=== PATIENT | female | born 1945 | race Caucasian/White ===

== ENCOUNTER 2020-07-30 12:19 | Day surgery (SDC) | payer MEDICARE ==
[~2020-07-30 12:19] MED LIST: Bupivacaine PF 0.75% SDV 10 ML ONE; Enoxaparin Sodium 30 MG/0.3 ML SYRINGE ONE; Fluorouracil 100 MG, Enoxaparin Sodium 25 MG, EPINEPHrine 0.3 MG in Ophthalmic Irrigati... IRR SCH; Lidocaine 4% PF 5 ML AMP ONE; Maxitrol 0.1% Opth Oint 3.5 GM TUBE ONE; Ondansetron PF 4 MG/2 ML Vial ONE; PROPOFOL 200 MG/20 ML VIAL ONE; Triamcinolone 40 MG/ML VIAL ONE
[2020-07-30] MEDS ORDERED: Phenylephrine 2.5% Ophth Soln 5 ML BOT ONE (13:13)
[2020-07-30] MEDS ORDERED: Cyclopentolate 1% Opth Drop 2 ML BOT ONE (13:13)
[2020-07-30] MEDS ORDERED: Dextrose 50% Abboject 50 ML SYRINGE ONE (14:14)
[2020-07-30] MEDS ORDERED: Fentanyl 100 MCG/2 ML VIAL ONE (15:00)
[2020-07-30] MEDS ORDERED: Midazolam HCl 2 mg/2 ml Vial ONE (15:00)
--- NOTE | 2020-07-31 12:42 | OP ---
DATE OF PROCEDURE: 07/30/2020 PREOPERATIVE DIAGNOSIS: Rhegmatogenous retinal detachment, left eye. POSTOPERATIVE DIAGNOSIS: Rhegmatogenous retinal detachment, left eye. PROCEDURES PERFORMED: Pars plana vitrectomy and retinal detachment repair, left eye. ANESTHESIA: Local with monitored anesthesia care. DESCRIPTION OF PROCEDURE: The patient was identified in the preoperative holding area. Appropriate informed consent for the planned surgical procedure on the left eye had been obtained. The patient was transported to the operative suite. Appropriate cardiopulmonary monitoring was established. Local anesthesia was obtained using retrobulbar modified Van Lint lid block using 50:50 mixture of 4% lidocaine and 0.75% bupivacaine. The patient was prepped and draped in usual sterile manner for ophthalmic surgery on the left eye. Lid speculum was placed in the left eye. A 27-gauge trocar was placed in the conjunctiva and sclera supratemporally, inferotemporally, and supranasally. Infusion line was placed inferotemporally. Light pipe and vitreous cutter inserted to the eye. Core vitrectomy was performed. At this point, I was noted that there was only isolated areas of elevation of the posterior hyaloid face. The hyaloid face was generally attached 360 degrees. Vigorous attempts to peel this posterior hyaloid face were unsuccessful. A tear was noted at the 12 o'clock, in addition tear was noted at the 4 o'clock position. Posterior drained retinotomy was created inferotemporally after the vitreous was trimmed back 360 degrees. Complete air-fluid exchange was performed with 10 minutes being left for fluid to drain. Posteriorly 360 laser was placed using Endolaser delivery device. Silicone oil was placed into the eye and the sclerotomy was suture closed with 7-0 Vicryl suture. Retrobulbar Kenalog and subconjunctival Ancef was placed. Antibiotic ointment was placed. Eye was patched and shielded. The patient was taken to postop recovery unit in good condition having suffered no immediate perioperative complications. The patient instructed to keep patch shield on position in the right side down. Followup appointment with Dr. Dwyer. Job ID: [id number]
== END 2020-07-30 17:23 | disposition home or self-care (01) ==
LOC: SDC 12:19
PROVIDERS: ATTEND Ophthalmology Retina Specialist
PROC: 08T53ZZ Resection of Left Vitreous, Percutaneous Approach (ICD-10-PCS; principal; 2020-07-30)
DX: H33.022 Retinal detachment with multiple breaks, left eye (principal); I10 Essential (primary) hypertension; E11.9 Type 2 diabetes mellitus without complications; E66.9 Obesity, unspecified; Z79.4 Long term (current) use of insulin; Z79.52 Long term (current) use of systemic steroids; Z79.82 Long term (current) use of aspirin; Z79.899 Other long term (current) drug therapy; Z88.0 Allergy status to penicillin; Z88.8 Allergy status to other drugs, medicaments and biological substances; Z94.0 Kidney transplant status
CPT/HCPCS: 67108; 82962; C1814; 36416; J0171; J1650; J2001; J2250; J2405; J2704; J3010; J3301; J3490; J9190

== ENCOUNTER 2020-11-16 13:59 | Outpatient (CLI) | payer MEDICARE ==
[2020-11-17 04:20] LABS: SARS-CoV-2 PCR by NAA Not Detected (NotDetected)
== END 2020-11-16 14:00 | disposition home or self-care (01) ==
LOC: LABBT 13:59
PROVIDERS: ATTEND Ophthalmology Retina Specialist
DX: Z01.812 Encounter for preprocedural laboratory examination (principal); H43.392 Other vitreous opacities, left eye; Z20.822 Contact with and (suspected) exposure to COVID-19
CPT/HCPCS: U0003; U0005; 87635

== ENCOUNTER 2020-11-19 06:31 | Day surgery (SDC) | payer MEDICARE ==
[2020-11-18 09:56] VITALS: BMI 33.5
[~2020-11-19 06:31] MED LIST changes: -Bupivacaine PF 0.75% SDV 10 ML ONE; +EPINEPHrine 0.3 MG in Ophthalmic Irrigation Solution 500 ML IRR SCH; -Enoxaparin Sodium 30 MG/0.3 ML SYRINGE ONE; -Fluorouracil 100 MG, Enoxaparin Sodium 25 MG, EPINEPHrine 0.3 MG in Ophthalmic Irrigati... IRR SCH; -Lidocaine 4% PF 5 ML AMP ONE; -Maxitrol 0.1% Opth Oint 3.5 GM TUBE ONE; -Ondansetron PF 4 MG/2 ML Vial ONE; -PROPOFOL 200 MG/20 ML VIAL ONE; -Triamcinolone 40 MG/ML VIAL ONE
[2020-11-19] MEDS ORDERED: Fentanyl 100 MCG/2 ML VIAL ONE (06:33)
[2020-11-19] MEDS ORDERED: Midazolam HCl 2 mg/2 ml Vial ONE (06:33)
[2020-11-19] MEDS ORDERED: Cyclopentolate 1% Opth Drop 2 ML BOT ONE (07:09)
[2020-11-19] MEDS ORDERED: Phenylephrine 2.5% Ophth Soln 5 ML BOT ONE (07:10)
[2020-11-19] MEDS ORDERED: Triamcinolone 40 MG/ML VIAL ONE (08:05)
[2020-11-19] MEDS ORDERED: Bupivacaine PF 0.75% SDV 10 ML ONE (08:05)
[2020-11-19] MEDS ORDERED: Lidocaine 4% PF 5 ML AMP ONE (08:05)
[2020-11-19] MEDS ORDERED: PROPOFOL 200 MG/20 ML VIAL ONE (08:05)
[2020-11-19] MEDS ORDERED: PHENYLEPHRINE-NS 100 MCG/ML 10 ML SYRINGE ONE (08:05)
[2020-11-19] MEDS ORDERED: Maxitrol 0.1% Opth Oint 3.5 GM TUBE ONE (08:05)
== END 2020-11-19 10:23 | disposition home or self-care (01) ==
LOC: SDC 06:31
PROVIDERS: ATTEND Ophthalmology Retina Specialist
PROC: 08T53ZZ Resection of Left Vitreous, Percutaneous Approach (ICD-10-PCS; principal; 2020-11-19)
PROC: 08NF3ZZ Release Left Retina, Percutaneous Approach (ICD-10-PCS; 2020-11-19)
DX: H43.392 Other vitreous opacities, left eye (principal); Z79.4 Long term (current) use of insulin; Z79.82 Long term (current) use of aspirin; Z79.899 Other long term (current) drug therapy; Z88.0 Allergy status to penicillin; Z88.8 Allergy status to other drugs, medicaments and biological substances
CPT/HCPCS: J0171; J2250; J2704; J3010; J3301; J3490

== ENCOUNTER 2020-12-29 10:28 | Outpatient (CLI) | payer MEDICARE ==
[2020-12-29 21:48] LABS: SARS-CoV-2 PCR by NAA Not Detected (NotDetected)
== END 2020-12-29 10:29 | disposition home or self-care (01) ==
LOC: LABBT 10:28
PROVIDERS: ATTEND Ophthalmology Retina Specialist
DX: Z01.812 Encounter for preprocedural laboratory examination (principal); H33.22 Serous retinal detachment, left eye; Z20.822 Contact with and (suspected) exposure to COVID-19
CPT/HCPCS: U0003; U0005; 87635

== ENCOUNTER 2020-12-31 06:23 | Day surgery (SDC) | payer MEDICARE ==
[~2020-12-31 06:23] MED LIST changes: -EPINEPHrine 0.3 MG in Ophthalmic Irrigation Solution 500 ML IRR SCH; +Fluorouracil 100 MG, Enoxaparin Sodium 25 MG, EPINEPHrine 0.3 MG in Ophthalmic Irrigati... IRR SCH
[2020-12-31] MEDS ORDERED: Fentanyl 100 MCG/2 ML VIAL ONE (06:28)
[2020-12-31] MEDS ORDERED: Midazolam HCl 2 mg/2 ml Vial ONE (06:28)
[2020-12-31] MEDS ORDERED: Cyclopentolate 1% Ophth Drops 15 ML BOT ONE (07:27)
[2020-12-31] MEDS ORDERED: Phenylephrine 2.5% Ophth Soln 5 ML BOT ONE (07:28)
[2020-12-31] MEDS ORDERED: Maxitrol 0.1% Opth Oint 3.5 GM TUBE ONE (08:03)
[2020-12-31] MEDS ORDERED: Triamcinolone 40 MG/ML VIAL ONE (08:03)
[2020-12-31] MEDS ORDERED: Lidocaine 4% PF 5 ML AMP ONE (08:03)
[2020-12-31] MEDS ORDERED: Bupivacaine PF 0.75% SDV 10 ML ONE (08:03)
[2020-12-31] MEDS ORDERED: PROPOFOL 200 MG/20 ML VIAL ONE (08:03)
== END 2020-12-31 10:26 | disposition home or self-care (01) ==
LOC: SDC 06:23
PROVIDERS: ATTEND Ophthalmology Retina Specialist
PROC: 08T53ZZ Resection of Left Vitreous, Percutaneous Approach (ICD-10-PCS; principal; 2020-12-31)
DX: H33.42 Traction detachment of retina, left eye (principal); Z88.0 Allergy status to penicillin; Z88.8 Allergy status to other drugs, medicaments and biological substances
CPT/HCPCS: 36416; 67025; J0171; J1650; J2250; J2704; J3010; J3301; J3490; J9190

== ENCOUNTER 2021-01-18 11:54 | Outpatient (CLI) | payer MEDICARE ==
[2021-01-18 21:00] LABS: SARS-CoV-2 PCR by NAA Not Detected (NotDetected)
== END 2021-01-18 11:55 | disposition home or self-care (01) ==
LOC: LABBT 11:54
PROVIDERS: ATTEND Ophthalmology Retina Specialist
DX: Z01.812 Encounter for preprocedural laboratory examination (principal); H33.22 Serous retinal detachment, left eye; Z20.822 Contact with and (suspected) exposure to COVID-19
CPT/HCPCS: U0003; U0005; 87635

== ENCOUNTER 2021-01-21 07:16 | Day surgery (SDC) | payer MEDICARE ==
[2021-01-19 11:14] VITALS: BMI 33.9
[~2021-01-21 07:16] MED LIST changes: +Famotidine/PF 20 mg/2ml Vial ONE; +Fentanyl 100 MCG/2 ML VIAL ONE
[2021-01-21] MEDS ORDERED: Cyclopentolate 1% Opth Drop 2 ML BOT ONE (07:30)
[2021-01-21] MEDS ORDERED: Phenylephrine 2.5% Ophth Soln 5 ML BOT ONE (07:30)
[2021-01-21] MEDS ORDERED: Midazolam HCl 2 mg/2 ml Vial ONE (08:20)
[2021-01-21] MEDS ORDERED: PROPOFOL 200 MG/20 ML VIAL ONE (09:04)
[2021-01-21] MEDS ORDERED: PHENYLEPHRINE-NS 100 MCG/ML 10 ML SYRINGE ONE (09:04)
[2021-01-21] MEDS ORDERED: Bupivacaine PF 0.75% SDV 10 ML ONE (09:04)
[2021-01-21] MEDS ORDERED: Lidocaine 4% PF 5 ML AMP ONE (09:04)
[2021-01-21] MEDS ORDERED: Metoclopramide HCl 10 MG/2 ML VIAL ONE (09:04)
[2021-01-21] MEDS ORDERED: ePHEDrine Sulfate 50 MG/10 ML VIAL ONE (09:04)
[2021-01-21] MEDS ORDERED: Enoxaparin Sodium 30 MG/0.3 ML SYRINGE ONE (09:04)
[2021-01-21] MEDS ORDERED: Maxitrol 0.1% Opth Oint 3.5 GM TUBE ONE (09:04)
[2021-01-21] MEDS ORDERED: Lidocaine 1% PF 5 ML VIAL ONE (09:04)
[2021-01-21] MEDS ORDERED: Triamcinolone 40 MG/ML VIAL ONE (09:04)
[2021-01-21] MEDS ORDERED: Ondansetron PF 4 MG/2 ML Vial ONE ×2 (09:04→11:42)
== END 2021-01-21 13:05 | disposition home or self-care (01) ==
LOC: SDC 07:16
PROVIDERS: ATTEND Ophthalmology Retina Specialist
PROC: 08T53ZZ Resection of Left Vitreous, Percutaneous Approach (ICD-10-PCS; principal; 2021-01-21)
DX: H33.42 Traction detachment of retina, left eye (principal); Z79.4 Long term (current) use of insulin; Z79.52 Long term (current) use of systemic steroids; Z79.82 Long term (current) use of aspirin; Z79.899 Other long term (current) drug therapy; Z88.0 Allergy status to penicillin; Z88.8 Allergy status to other drugs, medicaments and biological substances; Z94.0 Kidney transplant status
CPT/HCPCS: 67108; 82962; C1814; 36416; J0171; J1650; J2250; J2405; J2704; J2765; J3010; J3301; J3490; J9190; S0028